=== PATIENT | male | born 1940 | race Asian ===

== ENCOUNTER 2021-03-20 22:10 | Inpatient (IN) | payer OTHER ==
[~2021-03-20] VITALS: Ht 160 cm; Wt 58.5 kg
[~2021-03-20 22:10] MED LIST: ASPIR-8181 MG PO; BRILINTA90 MG PO; DOCU SOFT100 MG PO; HUMALOG KW100 UNIT/M SC; MEGESTROL AC40 MG/ML PO; METO25TA4 PO; NEURONTIN 100M100 MG PO; PANTOPRAZOLE 40MG TA PO; PROSCAR5 MG PO; TYLENOL325 MG PO; VITAMIN D2000 UNI2 PO
[2021-03-21 03:01] VITALS: BP 125/72; TEMP 97.9; Ht 160 cm; Wt 58.5 kg
[2021-03-21 04:00] VITALS: BP 102/72; TEMP 98.1
[2021-03-21 16:00] VITALS: BP 103/67; TEMP 97.5
[2021-03-21 17:51] LABS: PLATELET COUNT 109 K/uL (142-355)
[2021-03-21 18:10] LABS: POTASSIUM 5.3 mmol/L (3.6-5.2)
[2021-03-22 00:25] VITALS: TEMP 97.1
[2021-03-22 04:00] VITALS: BP 132/87; TEMP 97.4
[2021-03-22 08:00] VITALS: BP 105/44; TEMP 98.3
[2021-03-22 08:00] LABS: PLATELET COUNT 107 K/uL (142-355)
[2021-03-22 08:07] LABS: POTASSIUM 3.5 mmol/L (3.6-5.2)
[2021-03-22 16:00] VITALS: BP 124/72; TEMP 98.1
[2021-03-22 20:00] VITALS: BP 93/54; TEMP 97.9
[2021-03-23] VITALS: BP 120/62; TEMP 98.5
[2021-03-23 04:00] VITALS: BP 106/77; TEMP 98
[2021-03-23 06:02] LABS: PLATELET COUNT 109 K/uL (142-355)
[2021-03-23 06:13] LABS: POTASSIUM 3.8 mmol/L (3.6-5.2)
[2021-03-23 08:00] VITALS: BP 108/52; TEMP 96
[2021-03-23 12:00] VITALS: BP 128/66; TEMP 96.3
[2021-03-23 20:16] VITALS: BP 130/52; TEMP 98.3
[2021-03-24] VITALS: BP 118/77; TEMP 98
[2021-03-24 04:00] VITALS: BP 133/70; TEMP 98.4
[2021-03-24 08:00] VITALS: BP 90/74; TEMP 98.6
[2021-03-24 12:00] VITALS: BP 126/57; TEMP 97.4
[2021-03-24 16:00] VITALS: BP 116/88; TEMP 98.1
[2021-03-24 20:27] VITALS: BP 92/42; TEMP 98.7
[2021-03-25 00:21] VITALS: BP 142/48; TEMP 99.1
[2021-03-25 05:33] LABS: PLATELET COUNT 123 K/uL (142-355)
[2021-03-25 05:54] LABS: POTASSIUM 4.7 mmol/L (3.6-5.2)
[2021-03-25 08:00] VITALS: BP 116/52; TEMP 98.1
[2021-03-25 12:00] VITALS: BP 112/57; TEMP 97.7
[2021-03-25 16:00] VITALS: BP 126/57; TEMP 97.8
[2021-03-25 20:00] VITALS: BP 126/57; TEMP 97.5
[2021-03-26 07:58] LABS: PLATELET COUNT 122 K/uL (142-355)
[2021-03-26 08:17] LABS: POTASSIUM 3.6 mmol/L (3.6-5.2)
[2021-03-26 12:00] VITALS: BP 137/67; TEMP 97.5
[2021-03-26 16:00] VITALS: BP 116/65; TEMP 98
[2021-03-27 09:09] LABS: PLATELET COUNT 130 K/uL (142-355)
[2021-03-27 12:00] VITALS: BP 128/62; TEMP 98.1
[2021-03-27 16:00] VITALS: BP 162/69; TEMP 99
[2021-03-30] MEDS ORDERED: ESCI10TA PO (09:31)
[2021-03-30] MEDS ORDERED: REMERON 15MG TAB PO (09:31)
== END 2021-03-27 18:00 | disposition other institution (70) | DRG 206 ==
LOC: MED/SURG 22:10
PROVIDERS: Internal Medicine Endocrinology, Diabetes & Metabolism; ADMIT Internal Medicine; ATTEND Internal Medicine
DX: J98.4 Other disorders of lung (principal); F02.81 Dementia in other diseases classified elsewhere, unspecified severity, with behavioral disturbance; E83.42 Hypomagnesemia; N40.0 Benign prostatic hyperplasia without lower urinary tract symptoms; E11.9 Type 2 diabetes mellitus without complications; I10 Essential (primary) hypertension; K21.9 Gastro-esophageal reflux disease without esophagitis; G30.8 Other Alzheimer's disease; E78.49 Other hyperlipidemia; I25.10 Atherosclerotic heart disease of native coronary artery without angina pectoris; D72.818 Other decreased white blood cell count
CPT/HCPCS: 36415; 80048; 80053; 84439; 85027; 86480; 87635; J1815; J2060; J3490; J7040; J7060; U0003